=== PATIENT | male | born 1975 | race Caucasian/White ===

== ENCOUNTER 2024-07-03 11:41 | Day surgery (SDC) | payer BC, SELFPAY ==
--- NOTE | 2024-07-03 | PATH_ITS ---
[facility] Accession Number: [id number] No. of containers..01 Tissue . 01 Material submitted: . colon - TRANSVERSE POLYP . 01 Diagnosis: TRANSVERSE COLON, POLYP: Sessile serrated adenoma. MRV 07/08/2024 1129 Local . 01 Electronically signed: . Mirela Dia MD, Pathologist NPI- [id number] . 01 Gross description: . Received in formalin with two patient identifiers and transverse colon polyp, is a single griffin soft tissue fragment, 0.4 cm in greatest dimension. Submitted in A1. ([id number]) /MRV 07/06/2024 1204 Local . 01 Pathologist provided ICD-10: D12.3 . 01 CPT . 063818 Specimen Comment: A courtesy copy of this report has been sent to [phone] Performed at: [address] [facility] [address], [place], [place] [id number] MD Ibrahima Trivedi MD Phone: [phone]
[2024-07-03 12:09] VITALS: BP 128/80; PULSE 60; RESP 16; TEMP 36.6; O2SAT 99
[2024-07-03] MEDS: LACTATED RINGERS 1,000 ML 100 ML IV (12:22)
--- NOTE | 2024-07-03 12:30 | PM.HP.1 ---
History of Present Illness History of Present Illness Date Patient Seen: 07/03/24 Time Patient Seen: 12:30 Chief complaint: Colonoscopy Narrative: Dominick is a 49-year-old man who is here for his first screening colonoscopy. No family history of colon cancer. Meds Home Medications and Allergies Home Medications Medication Instructions Recorded Confirmed Type peg 3350-sod sulf,dlzon-mki-oze 1,000 ml PO DIRECTED #2,000 mL 05/22/24 Rx 178.7-7.3-0.5-1.12-0.9 gram oral soln (Suflave) Exam Vital Signs (past 8 hours): - 07/03/24 12:09 Temperature 97.8 F Pulse Rate 60 Respiratory Rate 16 Blood Pressure 128/80 Pulse Oximetry 99 Oxygen Delivery Method Room Air Oxygen Delivery Method Room Air Const General: healthy appearing Assessment & Plan Assessment and plan (1) Colon cancer screening: Status: Acute Plan Colonoscopy Time-Based Coding :: [TOTAL MINUTES] spent with patient and on the chart (including review of chart, obtaining history, exam, reviewing outside data, placing orders, documenting exam and treatment plan, and counseling patient) on [DATE].
[2024-07-03 12:51] VITALS: BP 105/65; PULSE 65; RESP 18; TEMP 36.6; O2SAT 96
--- NOTE | 2024-07-03 12:51 | PM.OP.COLON ---
Operative Date/Time/Diagnoses Date of procedure: 07/03/24 Time of procedure: 12:51 Pre-op diagnosis: Colon cancer screening Post-op diagnosis: same Procedure & Clinicians Study performed: Colonoscopy Same procedure as scheduled: Yes Surgeon: Alcides Reeves Procedure Notes Procedure in detail: Surgeon: Alcides Reeves MD Anesthesia: Anju Cool CRNA Procedure: The patient was brought to the endoscopy suite, placed in left lateral decubitus position. The patient was connected to monitoring devices. A time-out was performed. Sedation was administered. Once the patient was adequately sedated, a digital rectal exam was performed and was normal. The scope was then inserted and advanced to the cecum where the appendiceal orifice was identified and photographed. The scope was then slowly withdrawn over greater than 6 minutes. The mucosa was thoroughly inspected. There was a 4 mm polyp in the transverse colon removed with cold Jumbo forceps. The scope was retroflexed in the rectum. No other abnormalities were seen. The scope was straightened and removed. The patient was awakened and brought to recovery. Scope withdrawal time: 10 minutes Sedation time: 13 minutes EBL: 4 mL Findings: Small transverse colon polyp Post-procedure Disposition: PACU
[2024-07-03 12:56] VITALS: BP 102/67; PULSE 65; RESP 16; O2SAT 98
[2024-07-03 13:02] VITALS: BP 107/77; PULSE 62; RESP 15; TEMP 36.1; O2SAT 98
== END 2024-07-03 13:15 | disposition home or self-care (01) ==
PROVIDERS: PCP Nurse Practitioner Family; Referring Provider Surgery; Visit Provider Surgery
PROC: 0DJD8ZZ Inspection of Lower Intestinal Tract, Via Natural or Artificial Opening Endoscopic (ICD-10-PCS; CPT 45378; principal; 2024-07-03 13:15)
DX: Z12.11 Encounter for screening for malignant neoplasm of colon (principal); D12.3 Benign neoplasm of transverse colon
CPT/HCPCS: 45380; J2704